=== PATIENT | female | born 1985 | race Caucasian/White ===

== ENCOUNTER 2016-09-15 15:37 | Emergency (ER) | payer OTHER, BC ==
[2016-09-15 15:45] VITALS: BP 121/62
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
== END 2016-09-15 16:00 | disposition home or self-care (01) ==
LOC: ER 15:37
DX: Z04.1 Encounter for examination and observation following transport accident (principal); V43.52XA Car driver injured in collision with other type car in traffic accident, initial encounter; Z88.1 Allergy status to other antibiotic agents
CPT/HCPCS: 99283

== ENCOUNTER 2016-09-15 16:14 | Outpatient (CLI) | payer OTHER, BC | END 2016-09-15 18:36 | disposition home or self-care (01) | LOC: LC 16:14 | PROVIDERS: ATTEND Student in an Organized Health Care Education/Training Program | PROC: 4A1HXCZ Monitoring of Products of Conception, Cardiac Rate, External Approach (ICD-10-PCS; principal; 2016-09-15) | DX: Z34.93 Encounter for supervision of normal pregnancy, unspecified, third trimester (principal); Z36 Encounter for antenatal screening of mother; Z3A.34 34 weeks gestation of pregnancy | CPT/HCPCS: 59025 ==